=== PATIENT | female | born 1990 | race Caucasian/White ===

== ENCOUNTER 2018-09-10 01:23 | Emergency (ER) | payer SELFPAY ==
[~2018-09-10] VITALS: Ht 167.6 cm; Wt 115.0 kg
[2018-09-10 01:33] VITALS: BP 113/57
== END 2018-09-10 02:00 | disposition left against medical advice (07) ==
LOC: ER 01:23
DX: Z53.21 Procedure and treatment not carried out due to patient leaving prior to being seen by health care provider (principal)